=== PATIENT | female | born 1945 | race Caucasian/White ===

== ENCOUNTER → 2019-05-02 | Outpatient (CLI) | payer OTHER ==
[~2019-05-02] MED LIST: BACLOFEN20 MG PO; BACTRIM 400-801 EACH PO; CARBAMAZEPINE200 M2 PO; CENTRUM SILVER1 EAC4 PO; FOSAMAX 70 MG T70 MG PO; MACRODANTIN50 MG PO; MOBIC; MOBIC15 MG; NEOSPORIN; NORCO 5-325 TA1 EACH; OXYBUTYNIN PO; PROZAC 20 MG20 M1 PO; PROZAC20 MG PO; RED YEAST RICE600 M1 PO; VITAMIN D1000 UNI1 PO
== END ==
LOC: M.RAD 15:27
DX: Z12.31 Encounter for screening mammogram for malignant neoplasm of breast (principal); M81.0 Age-related osteoporosis without current pathological fracture; N91.2 Amenorrhea, unspecified; Z78.0 Asymptomatic menopausal state

== ENCOUNTER 2019-09-30 20:12 | Inpatient (IN) | payer OTHER ==
[~2019-09-30] VITALS: Ht 157.5 cm; Wt 61.2 kg
[2019-09-30 20:21] VITALS: BP 162/74
[2019-09-30 20:45] LABS: ABSOLUTE BASOPHILS 0.1 thou/uL (0.0-0.2); ABSOLUTE EOSINOPHILS 0.2 thou/uL (0.0-0.7); ABSOLUTE LYMPHOCYTES 1.8 thou/uL (0.8-5.3); ABSOLUTE MONOCYTES 0.6 thou/uL (0.0-1.2); ABSOLUTE NEUTROPHILS 1.7 thou/uL (1.6-8.1); BASOPHILS 1.4 %; EOSINOPHILS 4.7 %; HEMATOCRIT 35.7 % (37.0-47.0); HEMOGLOBIN 12.8 gm/dL (12.0-15.0); LYMPHOCYTES 40.5 %; MCH 31.7 pg (26.0-34.0); MCHC 35.8 g/dL (28.0-37.0); MCV 88.5 fL (80.0-100.0); MONOCYTES 13.2 %; MPV 6.4 fl. (7.2-11.1); NUCLEATED RBCS 0 /100WBC; PLATELET COUNT* 273 thou/uL (150-400); POLYS 40.2 %; RBC 4.03 mil/uL (4.20-5.00); WBC 4.3 thou/uL (4.0-11.0)
[2019-09-30 20:53] LABS: CALCIUM 8.4 mg/dL (8.5-10.1); CREATININE 0.6 mg/dL (0.6-1.3); POTASSIUM 3.8 mmol/L (3.5-5.1)
[2019-09-30 21:07] LABS: ALBUMIN 3.2 g/dL (3.4-5.0); TOTAL BILIRUBIN 0.2 mg/dL (<0.1-1.0); TOTAL PROTEIN 6.7 g/dL (6.4-8.2)
[2019-09-30 23:04] LABS: URINE BLOOD 3+ (Negative); URINE COLOR DARK YELLOW; URINE GLUCOSE-RANDOM NEGATIVE (Negative); URINE KETONES NEGATIVE (Negative); URINE LEUKOCYTES-REFLEX 1+ (Negative); URINE PROTEIN TRACE (Negative); URINE UROBILINOGEN 0.2 E.U./dl (0.2-1.0)
[2019-09-30 23:05] LABS: URINE BILIRUBIN 1+ (Negative); URINE CLARITY CLOUDY; URINE NITRITE-REFLEX POSITIVE (Negative)
[2019-09-30 23:12] LABS: SQUAMOUS 0-3 Few /LPF (0-3)
[2019-09-30 23:13] LABS: AMORPHOUS URATES Many /LPF (None Seen); BACTERIA-REFLEX >30 Many /HPF (None Seen); CASTS None Seen /LPF (None Seen); ICTOTEST (BILI CONFIRMATORY) Negative (Negative); MUCUS 4-6 Moderate strn/LPF (None Seen); URINE WBC-REFLEX 6-15 Few /HPF (0-5)
[2019-10-01] VITALS (8 sets, daily range): BP systolic 140–169; BP diastolic 48–85
[2019-10-01] MEDS ORDERED: MACROBID 100 M100 M1 PO (00:19)
--- NOTE | 2019-10-01 01:12 | NUR ---
DURING DISCHARGE PROCESS, PT BECAME SUDDENLY NAUSEATED, AND HAD SMALL AMOUNT OF GREEN BILE EMESIS. IV RESTARTED, IV ANTIEMETICS REQUESTED FROM , SEE ORDERS, SEE EMAR, SPOKE WITH PT'S DAUGHTER, AND NEW PLAN OF CARE DEVELOPED TO ADMIT PT. DAUGHTER SPOKE WITH PT'S SPOUSE, AND HE ALSO AGREED TO ADMITTING THE PT. AWAITING ORDERS FROM PROVIDER. WILL CONTINUE TO MONITOR FOR CHANGES IN STATUS/COMFORT LEVEL.
--- NOTE | 2019-10-01 05:39 | NUR ---
PATIENT ARRIVED ON FLOOR FROM ER AT ABOUT 0215. PATIENT ADMISSION HISTORY AND ASSESSMENT WAS COMPLETED CHARTED. IV FLUIDS WERE STARTED AT 100 ML/HR. PUREWICK WAS PLACED FOR INCONTINENCE. WILL CONTINUE TO MONITOR.
--- NOTE | 2019-10-01 09:48 | EKG ---
[place] [address] ELECTROCARDIOGRAM REPORT Name: RENETTALEONARD Room: [address] ADM IN M.R.#: [id number] Admission: 10/01/19 Attend Phys: Krystina gandhi Sa Discharge: Date of : 45 Date of Service: 09/30/192035 Report #: [id number] THIS REPORT FOR: //name// [facility] ED Test Date: 2019-09-30 Test Time: 20:36:35 Pat Name: LEONARD JACKSON Department: Room: [facility] Gender: F Senior International Tax Manager: [place] : 1945 Requested By: Vanessa Smiley Order Number: [id number] MD: Yahir Kinney Measurements Intervals [place] Rate: 77 P: 44 OR: 165 QRS: -11 QRSD: 86 T: 30 QT: 397 QTc: 450 Interpretive Statements Sinus rhythm No previous ECG available for comparison Electronically Signed On 10-01-2019 9:47:12 CDT by Yahir Kinney [email or web address] <ELECTRONICALLY SIGNED> By: Dhara Kinney MD, [facility] 10/01/19 0947 35 35 Dhara Kinney MD, [facility] /EPI
[2019-10-01 17:48] LABS: BE -2.1 mmol/L (-2 to +3); PCO2 36.3 mmHg (35.0-45.0); PO2 76.3 mmHg (75.0-100.0); pH 7.404 (7.340-7.450)
--- NOTE | 2019-10-01 17:49 | NUR ---
PATIENT TAKEN TO CT FOR SCAN. DIRECTOR OF STRATEGIC ALLIANCES CALLED RAPID RESPONSE STATING PATIENT LOOKED LIKE SHE WAS HAVING SEIZURE. PATIENT TAKEN TO ICU FROM CT AND REPORT GIVEN TO NURSE. DR GOODSON ROUNDED ON PATIENT IN ICU. PATIENT'S NOTIFIED.
[2019-10-01 18:01] LABS: ABSOLUTE LYMPHOCYTES 0.8 thou/uL (0.8-5.3); ABSOLUTE MONOCYTES 0.6 thou/uL (0.0-1.2); ABSOLUTE NEUTROPHILS 6.6 thou/uL (1.6-8.1); BASOPHILS 0.4 %; EOSINOPHILS 0.1 %; HEMATOCRIT 35.5 % (37.0-47.0); HEMOGLOBIN 12.7 gm/dL (12.0-15.0); LYMPHOCYTES 9.9 %; MCH 31.8 pg (26.0-34.0); MCHC 35.8 g/dL (28.0-37.0); MCV 88.9 fL (80.0-100.0); MONOCYTES 7.4 %; MPV 6.3 fl. (7.2-11.1); NUCLEATED RBCS 0 /100WBC; PLATELET COUNT* 263 thou/uL (150-400); POLYS 82.2 %
[2019-10-01 18:10] LABS: CALCIUM 7.6 mg/dL (8.5-10.1); CREATININE 0.5 mg/dL (0.6-1.3); POTASSIUM 3.5 mmol/L (3.5-5.1)
[2019-10-01 18:14] LABS: ALBUMIN 2.9 g/dL (3.4-5.0); TOTAL BILIRUBIN 0.3 mg/dL (<0.1-1.0); TOTAL PROTEIN 6.1 g/dL (6.4-8.2)
[2019-10-01 23:51] LABS: AMP/METHAMP Negative (Negative); BARBITURATES Negative (Negative); BENZODIAZEPINES Negative (Negative); COCAINE Negative (Negative); METHADONE Negative (Negative); OPIATES Negative (Negative); PCP Negative (Negative); THC Negative (Negative)
[2019-10-02] VITALS (10 sets, daily range): BP systolic 124–160; BP diastolic 33–62
--- NOTE | 2019-10-02 04:23 | NUR ---
ASSUMED CARE AT 1910H, ON RA AND TOLERATED. SEEN ON BED CONFUSED AND ALWAYS YAWNING, DROWSY AND SLOW TO RESPONSE. SESAY INSERTED ASEPTICALLY WITH NO COMPLICATION. UPDATED GIVEN TO THE AND HE DEMANDED TO SPEAK TO THE DOCTOR. HIMS INFORMED THAT WAS UPSET. NEUROLOGY CALLED WITH ORDER MADE AND CARRIED OUT. WITH INSTRUCTION TO CALL HIM IF SHE WILL HAVE ANOTHER SIEZURE. NO DISTRESS AND NO SIEZURE NOTED. PT WAS MORE AWAKE AND STILL CONFUSED. CTA AND CT OF THE BRAIN TO BE DONE TODAY. CONTINUE MONITORING AND TOWARD GOALS.
[2019-10-03 00:01] VITALS: BP 139/60
[2019-10-03 03:36] LABS: HEMATOCRIT 32.1 % (37.0-47.0); HEMOGLOBIN 11.3 gm/dL (12.0-15.0); MCH 31.9 pg (26.0-34.0); MCHC 35.2 g/dL (28.0-37.0); MCV 90.5 fL (80.0-100.0); MPV 6.7 fl. (7.2-11.1); RBC 3.54 mil/uL (4.20-5.00); RDW-CV 13.3 % (10.5-14.5); WBC 6.2 thou/uL (4.0-11.0)
[2019-10-03 03:49] LABS: ALBUMIN 2.7 g/dL (3.4-5.0); CALCIUM 7.7 mg/dL (8.5-10.1); CREATININE 0.4 mg/dL (0.6-1.3); MAGNESIUM 1.8 mg/dL (1.8-2.4); TOTAL BILIRUBIN 0.4 mg/dL (<0.1-1.0); TOTAL PROTEIN 5.7 g/dL (6.4-8.2)
[2019-10-03 03:53] LABS: POTASSIUM 2.8 mmol/L (3.5-5.1)
[2019-10-03 04:02] VITALS: BP 145/72
--- NOTE | 2019-10-03 06:53 | NUR ---
ASSUMED CARE OF PT AFTER REPORT AT 1930. PT A&OX3. CONFUSED & FORGETFUL AT TIMES. PT VSS. PHYSICAL ASSESSMENT COMPLETED AND CHARTED. PT ON RA. PT TRACING SR ON TELE. PT DENIES ANY PAIN. PT WITH SESAY TO DEPENDENT DRAIN. PT TURNED TO SIDES. FALL PRECAUTIONS IN PLACE.
[2019-10-03 08:01] VITALS: BP 155/107
--- NOTE | 2019-10-03 14:59 | NUR ---
ICU rounds: Pt had MRI today. CM spoke with Pt and dtr in room. Pt resides at home with her . Pt has a CG, Pooja, that comes in while is at work. CG assists with cooking and cleaning. Per Dtr, comes home from work to assist with toileting, Pt is wc bound but is able to stand and pivot with support. Pt is incontinent. No hx of HH. Hx of skilled at [facility]. Goal is home at wa no needs anticipated.
[2019-10-03 16:01] VITALS: BP 160/72
--- NOTE | 2019-10-03 18:48 | NUR ---
ASSESSMENT CHARTED. VSS. REPORT GIVEN TO TELE NURSE. PATIENT TO 230 VIA BED AT 1845.
[2019-10-03 20:00] VITALS: BP 159/75
[2019-10-04] VITALS: BP 153/66
[2019-10-04 04:36] VITALS: BP 167/93
--- NOTE | 2019-10-04 06:43 | NUR ---
ASSUMED CARE OF PT AFTER REPORT AT 1930. PT A&OX1. ONLY ORIENTED TO SELF. CONFUSED. VSS. PHYSICAL ASSESSMENT COMPLETED AND CHARTED. PT ON RA. PT TRACING SR ON TELE. PT WITH SESAY TO DEPENDENT DRAIN. PT CMOPLAINED OF BACK & LEG PAIN-MED GIVEN PER JUN. FALL PRECAUTIONS IN PLACE. MAINTAINED ON SEIZURE PRECAUTION. CALL LIGHT WITHIN REACH.
[2019-10-04 07:50] VITALS: BP 151/79
--- NOTE | 2019-10-04 07:50 | NUR ---
ASSUMED CARE OF PATIENT FROM NIGHT NURSE. PT IS DOING WELL WITH MILD CO OF PAIN WELL CONTROLLED WITH PO PAIN MEDICATIONS. SHE WAS EDUCATED ON POC AND DISEASE PROCESS. BED IN LOWEST POSITION AND CALL LIGHT IN REACH. WILL CONTINUE TO MONITOR.
[2019-10-04 16:00] VITALS: BP 141/60
[2019-10-04 20:00] VITALS: BP 185/76
[2019-10-04 22:00] VITALS: BP 167/70
[2019-10-05] VITALS: BP 197/87
[2019-10-05 01:00] VITALS: BP 168/76
[2019-10-05 04:00] VITALS: BP 161/76
--- NOTE | 2019-10-05 06:57 | NUR ---
ASSUMED CARE OF PT AFTER REPORT AT 1930. PT A&OX2-3. DROWSY AT THE START OF THE SHIFT BUT MORE ALERT IN AM. VSS. PHYSICAL ASSESSMENT COMLPETED AND CHARTED. PT ON RA. PT TRACING SR ON TELE. PT TURNED TO SIDES. PT COMPLAINED OF PAIN-MED GIVEN PER JUN. PT WITH SESAY TO DEPENDENT DRAIN. MAINTAINED ON SEIZURE PRECAUTION. PT HAD AN EPISODES OF ELEVATED BP-DR GOODSON MADE AWARE WITH ADDITIONAL PRN BP MED ORDERS. FALL PREACUTIONS IN PLACE.
[2019-10-05 08:20] VITALS: BP 181/87
[2019-10-05 12:31] VITALS: BP 157/80
[2019-10-05] MEDS ORDERED: NORCO 5-325 TA1 EAC1 PO (14:55)
[2019-10-05 14:56] VITALS: BP 157/80
--- NOTE | 2019-10-05 15:17 | NUR ---
PT WAS DISCHARGED HOME WITH A LIST OF HOME MEDICATIONS AND DISCHARGE INSTRUCTIONS. IVS REMOVED, WILL CONTINUE TO MONITOR.
--- NOTE | 2019-10-05 16:42 | NUR ---
PT.DISCHARGED TODAY PRIOR TO CM SEEING HER. NO HOME HEALTH ORDERED. NO HX OF HOME HEALTH. 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
--- NOTE | 2019-10-12 12:39 | EEG ---
[address] [address] EEG STUDY REPORT Name: LEONARD JACKSON Room: [address] IN M.R.#: [id number] Admission: 10/01/19 Attend Phys: Krystina Baron Discharge: 10/05/19 Date of : 45 Report #: [id number] THIS REPORT FOR: //name// CC: Krystina Sparks This patient is being evaluated for altered mental status. EEG was done by placing the electrode by standard 10-20 system of electrode placement. Both referential and sequential montages were used for recording. Background activity in this patient's EEG is about 7 Hz and 30 microvolt. It is a symmetrical activity. Photic stimulation is unremarkable. Throughout the record, no active epileptiform activity was noticed. IMPRESSION: This is an abnormal EEG because it is disorganized and poorly formed. That is a nonspecific abnormality which can occur with encephalopathy, effect of psychotropic medication, dementia, etc. Clinical correlation is recommended. <ELECTRONICALLY SIGNED> By: Pedrito Tian MD 10/12/19 1239 [id number] [id number] Tian MD /nt
== END 2019-10-05 16:40 | disposition home or self-care (01) | DRG 871 ==
LOC: M.ERS 20:12 → M.2W 10-01 01:16 → M.TBA-ER 10-01 01:16 → M.ICU 10-01 01:16 → M.ERS 10-01 02:00 → M.3W 10-01 02:16 → M.ICU 10-01 17:37 → M.2W 10-03 18:55
PROVIDERS: Emergency Medicine; Internal Medicine; ADMIT Family Medicine; ATTEND Family Medicine
DX: A41.9 Sepsis, unspecified organism (principal); G92 Toxic encephalopathy; N30.00 Acute cystitis without hematuria; E87.1 Hypo-osmolality and hyponatremia; E44.0 Moderate protein-calorie malnutrition; M48.54XA Collapsed vertebra, not elsewhere classified, thoracic region, initial encounter for fracture; M81.0 Age-related osteoporosis without current pathological fracture; G35 Multiple sclerosis; F03.90 Unspecified dementia, unspecified severity, without behavioral disturbance, psychotic disturbance, mood disturbance, and anxiety; Z68.24 Body mass index [BMI] 24.0-24.9, adult; Z79.899 Other long term (current) drug therapy

== ENCOUNTER 2020-03-04 10:40 | Inpatient (IN) | payer OTHER ==
[~2020-03-04] VITALS: Ht 157.5 cm; Wt 65.3 kg
[~2020-03-04 10:40] MED LIST changes: +MACROBID 100 M100 M1 PO; +NORCO 5-325 TA1 EAC1 PO
[2020-03-04 10:49] VITALS: BP 153/70
[2020-03-04 11:12] LABS: URINE BILIRUBIN NEGATIVE (Negative); URINE BLOOD NEGATIVE (Negative); URINE CLARITY SL CLOUDY; URINE COLOR YELLOW; URINE GLUCOSE-RANDOM NEGATIVE (Negative); URINE KETONES NEGATIVE (Negative); URINE NITRITE-REFLEX NEGATIVE (Negative); URINE PROTEIN NEGATIVE (Negative); URINE SPECIFIC GRAVITY 1.015 (1.005-1.030); URINE UROBILINOGEN 0.2 E.U./dl (0.2-1.0)
[2020-03-04 11:13] LABS: URINE LEUKOCYTES-REFLEX 2+ (Negative)
[2020-03-04 11:18] LABS: SQUAMOUS 0-3 Few /LPF (0-3); WBC CLUMPS Few (None Seen)
[2020-03-04 11:19] LABS: URINE RBC 0-2 Rare /HPF (0-2); URINE WBC-REFLEX >25 Many /HPF (0-5)
[2020-03-04 11:20] LABS: CASTS None Seen /LPF (None Seen); CRYSTALS None Seen /LPF (None Seen); MUCUS 0-3 Light strn/LPF (None Seen)
[2020-03-04 11:50] LABS: ABSOLUTE LYMPHOCYTES 0.6 thou/uL (0.8-5.3); ABSOLUTE MONOCYTES 0.6 thou/uL (0.0-1.2); ABSOLUTE NEUTROPHILS 6.8 thou/uL (1.6-8.1); BASOPHILS 0.3 %; EOSINOPHILS 0.1 %; HEMATOCRIT 40.5 % (37.0-47.0); LYMPHOCYTES 7.5 %; MCH 31.1 pg (26.0-34.0); MCHC 34.5 g/dL (28.0-37.0); MCV 90.2 fL (80.0-100.0); MONOCYTES 7.3 %; MPV 6.4 fl. (7.2-11.1); NUCLEATED RBCS 0 /100WBC; PLATELET COUNT* 200 thou/uL (150-400); POLYS 84.8 %; RBC 4.49 mil/uL (4.20-5.00); RDW-CV 12.9 % (10.5-14.5)
[2020-03-04 12:00] LABS: CALCIUM 8.4 mg/dL (8.5-10.1); CREATININE 0.5 mg/dL (0.6-1.3); POTASSIUM 4.1 mmol/L (3.5-5.1)
[2020-03-04 12:05] LABS: ALBUMIN 3.5 g/dL (3.4-5.0); TOTAL BILIRUBIN 0.4 mg/dL (<0.1-1.0); TOTAL PROTEIN 7.3 g/dL (6.4-8.2)
[2020-03-04] MEDS ORDERED: KEFLEX500 M1 PO (12:32)
[2020-03-04 14:15] VITALS: BP 146/78; BP 162/70
[2020-03-04 17:17] VITALS: BP 131/56
[2020-03-04 19:18] VITALS: BP 140/63
[2020-03-05 04:17] LABS: ABSOLUTE LYMPHOCYTES 0.8 thou/uL (0.8-5.3); ABSOLUTE MONOCYTES 0.4 thou/uL (0.0-1.2); ABSOLUTE NEUTROPHILS 3.2 thou/uL (1.6-8.1); BASOPHILS 0.5 %; EOSINOPHILS 0.2 %; HEMATOCRIT 35.6 % (37.0-47.0); HEMOGLOBIN 12.4 gm/dL (12.0-15.0); LYMPHOCYTES 17.1 %; MCHC 34.8 g/dL (28.0-37.0); MONOCYTES 10.1 %; MPV 6.7 fl. (7.2-11.1); NUCLEATED RBCS 0 /100WBC; PLATELET COUNT* 179 thou/uL (150-400); POLYS 72.1 %; WBC 4.4 thou/uL (4.0-11.0)
[2020-03-05 04:43] LABS: CALCIUM 7.8 mg/dL (8.5-10.1); CREATININE 0.3 mg/dL (0.6-1.3); POTASSIUM 3.9 mmol/L (3.5-5.1)
[2020-03-05 07:30] VITALS: BP 131/71
[2020-03-05 15:58] VITALS: BP 133/64
[2020-03-05 20:35] VITALS: BP 136/55
[2020-03-06 04:41] LABS: ABSOLUTE EOSINOPHILS 0.1 thou/uL (0.0-0.7); ABSOLUTE LYMPHOCYTES 1.4 thou/uL (0.8-5.3); ABSOLUTE MONOCYTES 0.5 thou/uL (0.0-1.2); ABSOLUTE NEUTROPHILS 1.1 thou/uL (1.6-8.1); BASOPHILS 0.9 %; EOSINOPHILS 2.5 %; HEMATOCRIT 33.7 % (37.0-47.0); HEMOGLOBIN 11.5 gm/dL (12.0-15.0); LYMPHOCYTES 44.9 %; MCH 30.4 pg (26.0-34.0); MCHC 34.1 g/dL (28.0-37.0); MCV 89.2 fL (80.0-100.0); MONOCYTES 17.2 %; MPV 6.6 fl. (7.2-11.1); NUCLEATED RBCS 0 /100WBC; PLATELET COUNT* 171 thou/uL (150-400); POLYS 34.5 %; RBC 3.78 mil/uL (4.20-5.00); RDW-CV 12.9 % (10.5-14.5); WBC 3.1 thou/uL (4.0-11.0)
[2020-03-06 04:57] LABS: ALBUMIN 2.8 g/dL (3.4-5.0); CALCIUM 7.5 mg/dL (8.5-10.1); CREATININE 0.3 mg/dL (0.6-1.3); POTASSIUM 3.9 mmol/L (3.5-5.1); TOTAL BILIRUBIN 0.2 mg/dL (<0.1-1.0); TOTAL PROTEIN 5.9 g/dL (6.4-8.2)
[2020-03-06 08:00] VITALS: BP 146/60
[2020-03-06 16:30] VITALS: BP 137/72
[2020-03-06 20:00] VITALS: BP 149/58
[2020-03-07 04:10] LABS: ABSOLUTE EOSINOPHILS 0.1 thou/uL (0.0-0.7); ABSOLUTE LYMPHOCYTES 1.6 thou/uL (0.8-5.3); ABSOLUTE MONOCYTES 0.4 thou/uL (0.0-1.2); ABSOLUTE NEUTROPHILS 1.1 thou/uL (1.6-8.1); BASOPHILS 1.2 %; HEMATOCRIT 34.6 % (37.0-47.0); LYMPHOCYTES 48.8 %; MCH 30.5 pg (26.0-34.0); MCHC 34.7 g/dL (28.0-37.0); MONOCYTES 11.8 %; MPV 6.5 fl. (7.2-11.1); NUCLEATED RBCS 0 /100WBC; PLATELET COUNT* 195 thou/uL (150-400); POLYS 34.2 %; RBC 3.93 mil/uL (4.20-5.00); RDW-CV 12.6 % (10.5-14.5); WBC 3.2 thou/uL (4.0-11.0)
[2020-03-07 04:21] LABS: CALCIUM 8.3 mg/dL (8.5-10.1); CREATININE 0.3 mg/dL (0.6-1.3); POTASSIUM 3.7 mmol/L (3.5-5.1)
[2020-03-07 08:10] VITALS: BP 161/65
[2020-03-07] MEDS ORDERED: CEFUROXIME500 MG PO (10:32)
[2020-03-07 11:37] VITALS: BP 161/65
== END 2020-03-07 13:00 | disposition home or self-care (01) | DRG 871 ==
LOC: M.ERS 10:40 → M.TBA-ER 12:54 → M.3W 12:54
PROVIDERS: Emergency Medicine Emergency Medical Services; ADMIT Internal Medicine; ATTEND Internal Medicine
DX: A41.9 Sepsis, unspecified organism (principal); G93.41 Metabolic encephalopathy; N39.0 Urinary tract infection, site not specified; E87.1 Hypo-osmolality and hyponatremia; E44.0 Moderate protein-calorie malnutrition; G35 Multiple sclerosis; E86.0 Dehydration; R53.81 Other malaise; M81.0 Age-related osteoporosis without current pathological fracture; Z20.828 Contact with and (suspected) exposure to other viral communicable diseases; Z68.26 Body mass index [BMI] 26.0-26.9, adult; Z79.899 Other long term (current) drug therapy